=== PATIENT | male | born 1990 ===

== ENCOUNTER 2019-07-30 13:04 | Emergency (ER) | payer OTHER ==
[~2019-07-30] VITALS: Ht 180.3 cm; Wt 104.3 kg
[2019-07-30] MEDS ORDERED: LITHOBID300 M1 (13:45)
[2019-07-30] MEDS ORDERED: LATUDA40 MG (13:45)
[2019-07-30] MEDS ORDERED: AMBIEN5 MG (13:46)
== END 2019-07-30 18:42 | disposition home or self-care (01) ==
LOC: ER 13:04
DX: S62.347A Nondisplaced fracture of base of fifth metacarpal bone, left hand, initial encounter for closed fracture (principal); W18.39XA Other fall on same level, initial encounter; Y93.89 Activity, other specified; Y92.89 Other specified places as the place of occurrence of the external cause; Y99.8 Other external cause status